=== PATIENT | female | born 1960 | race Caucasian/White ===

== ENCOUNTER → 2016-12-21 | Outpatient (CLI) | payer BC ==
[2016-12-21 07:52] LABS: Basophils # (A) 0.1 k/uL (0-0.2); Basophils % (A) 1 %; CH 28.5; CHCM 32.7; Eosinophils # (A) 0.2 k/uL (0-0.7); Eosinophils % (A) 4 %; HCT 38.4 % (34.0-46.0); HDW 2.46; HGB 12.7 gm/dL (11.4-16.0); Luc # (Auto) 0.16; Luc % (Auto) 4; Lymphocytes # (A) 1.4 k/uL (1.0-4.8); Lymphocytes % (A) 32 %; MCHC 33.1 g/dL (31.0-37.0); MCV 87.4 fL (80.0-100.0); Mean Platelet Volume 8.2; Monocytes # (A) 0.2 k/uL (0-1.0); Monocytes % (A) 6 %; Neutrophils # (A) 2.4 k/uL (1.3-7.7); Neutrophils % (A) 54 %; RDW 12.8 % (11.5-15.5); WBC 4.4 k/uL (3.8-10.6)
[2016-12-21 08:06] LABS: ALT 23 U/L (9-52); AST 17 U/L (14-36); Alkaline Phosphatase 61 U/L (38-126); Anion Gap 8 mmol/L; Blood Urea Nitrogen 16 mg/dL (7-17); Calcium 9.4 mg/dL (8.4-10.2); Carbon Dioxide 30 mmol/L (22-30); Chloride 103 mmol/L (98-107); Cholesterol 145 mg/dL (<200); Glucose 99 mg/dL (74-99); HDL Cholesterol 60 mg/dL (40-60); Non-African American GFR(MDRD) >60 (>60 ml/min/1.73 sqM); Sodium 141 mmol/L (137-145); Total Bilirubin 0.8 mg/dL (0.2-1.3); Total Protein 7.4 g/dL (6.3-8.2); Triglycerides 67 mg/dL (<150)
[2016-12-21 08:48] LABS: Potassium 4.6 mmol/L (3.5-5.1)
== END | disposition home or self-care (01) ==
LOC: LABWHC1 07:20
PROVIDERS: ATTEND Internal Medicine
DX: E78.5 Hyperlipidemia, unspecified (principal); I10 Essential (primary) hypertension; E03.9 Hypothyroidism, unspecified; E55.9 Vitamin D deficiency, unspecified
CPT/HCPCS: 36415; 80053; 80061; 84439; 84443; 85025; 86376; 86800

== ENCOUNTER → 2017-12-26 | Outpatient (CLI) | payer BC ==
[2017-12-26 09:24] LABS: Basophils % (A) 1 %; Eosinophils # (A) 0.1 k/uL (0-0.7); Eosinophils % (A) 3 %; HCT 39.7 % (34.0-46.0); HGB 12.9 gm/dL (11.4-16.0); Lymphocytes # (A) 1.6 k/uL (1.0-4.8); Lymphocytes % (A) 29 %; MCH 28.1 pg (25.0-35.0); MCHC 32.4 g/dL (31.0-37.0); MCV 86.7 fL (80.0-100.0); Mean Platelet Volume 7.1; Monocytes # (A) 0.3 k/uL (0-1.0); Monocytes % (A) 5 %; Neutrophils # (A) 3.3 k/uL (1.3-7.7); Neutrophils % (A) 60 %; Platelet Count 246 k/uL (150-450); RBC 4.58 m/uL (3.80-5.40); WBC 5.5 k/uL (3.8-10.6)
[2017-12-26 11:33] LABS: ALT 26 U/L (9-52); AST 23 U/L (14-36); Albumin 4.5 g/dL (3.5-5.0); Alkaline Phosphatase 58 U/L (38-126); Anion Gap 10 mmol/L; Blood Urea Nitrogen 16 mg/dL (7-17); C Reactive Protein 9.1 mg/L (<10.0); Calcium 9.5 mg/dL (8.4-10.2); Carbon Dioxide 29 mmol/L (22-30); Chloride 103 mmol/L (98-107); Cholesterol 165 mg/dL (<200); Creatine Kinase 142 U/L (30-135); Glucose 101 mg/dL (74-99); HDL Cholesterol 60 mg/dL (40-60); LDL Cholesterol,Calculated 80 mg/dL (0-99); Potassium 4.5 mmol/L (3.5-5.1); Sodium 142 mmol/L (137-145); Total Bilirubin 0.5 mg/dL (0.2-1.3); Total Protein 7.3 g/dL (6.3-8.2); Triglycerides 123 mg/dL (<150)
[2017-12-26 11:44] LABS: T4, Free (Free Thyroxine) 1.29 ng/dL (0.78-2.19)
[2017-12-26 13:19] LABS: Erythrocyte Sedimentation Rate 17 mm/hr (0-20)
[2017-12-26 16:35] LABS: Vitamin D 25 Hydroxy 20.9 ng/mL (30.0-100.0)
[2017-12-26 16:51] LABS: Thyroid Peroxidase Antibodies <28.0 U/mL (0.0-60.0)
== END | disposition home or self-care (01) ==
LOC: LABWHC1 08:37
PROVIDERS: ATTEND Internal Medicine
DX: E78.5 Hyperlipidemia, unspecified (principal); E03.9 Hypothyroidism, unspecified; E55.9 Vitamin D deficiency, unspecified
CPT/HCPCS: 36415; 80053; 80061; 82306; 82550; 84439; 84443; 85025; 85652; 86140; 86376; 86800

== ENCOUNTER → 2018-12-03 | Outpatient (CLI) | payer BC ==
[2018-12-03 18:21] LABS: T4, Free (Free Thyroxine) 1.2 ng/dL (0.80-1.80)
== END ==
LOC: LABWHC1 08:51
PROVIDERS: ATTEND Internal Medicine
DX: E55.9 Vitamin D deficiency, unspecified (principal); E03.9 Hypothyroidism, unspecified
CPT/HCPCS: 36415; 82306; 84439; 84443; 85652

== ENCOUNTER → 2019-01-17 | Outpatient (CLI) | payer BC ==
--- NOTE | 2019-01-17 09:31 | BD ---
EXAMINATION TYPE: Axial Bone Density DATE OF EXAM: 01/17/2019 COMPARISON: Prior DEXA bone scan 2013 CLINICAL HISTORY: Height: 5 FT 6 1/2 IN Weight: 187 FRAX RISK QUESTIONS: Secondary Osteoporosis: 3. Menopause before 45: YES RISK FACTORS HISTORY OF: Active: YES Postmenopausal woman: AGE [age] Take estrogen and/or progesterone medications: YES How lon WEEKS Lost more than 2 inches in height since high school: YES MEDICATIONS: Thyroid Medications: YES Which medication: LEVOXYL How Lon YEARS Additional Medications: LEVOXYL,PELLET THERAPY, LIPITOR, METOPROLOL, LISINOPRIL, ASPIRIN, D3, Additional History: EXAM MEASUREMENTS: Bone mineral densitometry was performed using the [employer]. Bone mineral density as measured about the Lumbar spine is: ----- L1-L4(G/cm2): 1.185 T Score Values are as follows: ----- L2: -1.5 ----- L3: 0.9 ----- L4: 1.2 ----- L1-L4: 0.0 Bone mineral density has: DECREASED -1.8% since study of: 2013 Bone mineral density about the R hip (g/cm2): 1.025 Bone mineral density about the L hip (g/cm2): 0.969 T Score values are as follows: -----R Neck: -0.1 -----L Neck: -0.5 -----R Total: -0.1 -----L Total: 0.2 Bone mineral density has: INCREASED 0.8 % since study of: 2013 IMPRESSION: Normal (Values between +1 and -1 indicate normal bone mass). Consider repeating this study in 5 year s or sooner if there is some new clinical indication. NOTE: T-SCORE=SD OF THE YOUNG ADULT MEAN.
--- NOTE | 2019-01-17 11:57 | MM ---
Reason for exam: screening (asymptomatic). Last mammogram was performed 1 year and 4 months ago. History: Patient is postmenopausal, has history of other cancer at age 42, and is nulliparous. Physical Findings: A clinical breast exam by your physician is recommended on an annual basis and results should be correlated with mammographic findings. MG 3D Screening Mammo W/Cad Bilateral CC and MLO view(s) were taken. Prior study comparison: September 28, 2017, bilateral MG screening mammo w CAD. April 28, 2016, bilateral MG screening mammo w CAD. The breast tissue is heterogeneously dense. This may lower the sensitivity of mammography. There is chronic nodularity in the right breast. There is no discrete abnormality. ASSESSMENT: Negative, BI-RAD 1 RECOMMENDATION: Routine screening mammogram of both breasts in 1 year.
== END ==
LOC: RADMAMWWP 07:19
PROVIDERS: ATTEND Obstetrics & Gynecology
DX: Z12.31 Encounter for screening mammogram for malignant neoplasm of breast (principal); N95.1 Menopausal and female climacteric states
CPT/HCPCS: 77063; 77067; 77080

== ENCOUNTER → 2019-04-03 | Outpatient (CLI) | payer BC ==
[2019-04-03 08:37] LABS: Basophils % (A) 1 %; Eosinophils # (A) 0.2 k/uL (0-0.7); Eosinophils % (A) 3 %; HCT 39.7 % (34.0-46.0); HGB 12.4 gm/dL (11.4-16.0); Lymphocytes # (A) 1.7 k/uL (1.0-4.8); Lymphocytes % (A) 31 %; MCH 27.6 pg (25.0-35.0); MCHC 31.2 g/dL (31.0-37.0); MCV 88.6 fL (80.0-100.0); Mean Platelet Volume 7.3; Monocytes # (A) 0.3 k/uL (0-1.0); Monocytes % (A) 6 %; Neutrophils # (A) 3.2 k/uL (1.3-7.7); Neutrophils % (A) 58 %; Platelet Count 241 k/uL (150-450); RBC 4.48 m/uL (3.80-5.40); RDW 14.6 % (11.5-15.5); WBC 5.6 k/uL (3.8-10.6)
[2019-04-03 12:18] LABS: Erythrocyte Sedimentation Rate 13 mm/hr (0-20)
[2019-04-03 17:11] LABS: T4, Free (Free Thyroxine) 1.2 ng/dL (0.80-1.80)
[2019-04-03 17:51] LABS: African American GFR (CKD) 112.3 (60.0-200.0); Albumin 4.3 g/dL (3.80-4.90); Albumin/Globulin Ratio 2.05 (1.60-3.17); Anion Gap 6.4 mmol/L (4.00-12.00); BUN/Creat Ratio 18.57 Ratio (12.00-20.00); C Reactive Protein 0.4 mg/dL (0.0-0.8); Carbon Dioxide 26.6 mmol/L (21.6-31.8); Globulin 2.1 g/dL (1.6-3.3); LDL Cholesterol,Calculated 84.4 mg/dL (0.0-131.0); Potassium 4.4 mmol/L (3.5-5.5); Total Bilirubin 0.4 mg/dL (0.3-1.2); Total Protein 6.4 g/dL (6.2-8.2); VLDL Calculation 11.6 mg/dL (5.00-40.00)
== END | disposition home or self-care (01) ==
LOC: LABWHC1 07:20
PROVIDERS: ATTEND Internal Medicine
DX: Z00.00 Encounter for general adult medical examination without abnormal findings (principal); E87.8 Other disorders of electrolyte and fluid balance, not elsewhere classified; E78.5 Hyperlipidemia, unspecified; E03.9 Hypothyroidism, unspecified; E55.9 Vitamin D deficiency, unspecified
CPT/HCPCS: 36415; 80053; 80061; 82306; 82550; 84439; 84443; 85025; 85652; 86140

== ENCOUNTER → 2019-11-20 | Outpatient (CLI) | payer BC ==
--- NOTE | 2019-11-20 09:07 | MM ---
Reason for exam: clinical finding. Last mammogram was performed 10 months ago. History: Patient is postmenopausal, has history of other cancer at age 42, and is nulliparous. Taking estrogen beginning at age 58. Taking progesterone beginning at age 58. Taking other hormone beginning at age 58. Physical Findings: Nurse did not find any significant physical abnormalities on exam. MG 3D Diag Mammo W/Cad MARCELINO Bilateral CC and MLO view(s) were taken. Prior study comparison: January 17, 2019, bilateral MG 3d screening mammo w/cad. September 28, 2017, bilateral MG screening mammo w CAD. There are stable right upper outer quadrant piddle and posterior depth masses and right lower inner quadrant anterior depth mass back to 2014. No suspicious abnormality. No significant new findings when compared with previous films. These results were verbally communicated with the patient and result sheet given to the patient on 11/20/19. ASSESSMENT: Benign, BI-RAD 2 RECOMMENDATION: Routine screening mammogram of both breasts in 1 year. Manage patient on a clinical basis.
== END | disposition home or self-care (01) ==
LOC: RADMAMWWP 07:28
PROVIDERS: ATTEND Obstetrics & Gynecology
DX: N64.52 Nipple discharge (principal)
CPT/HCPCS: 77062; 77066

== ENCOUNTER → 2020-11-24 | Outpatient (CLI) | payer BC ==
[2020-11-24 13:21] LABS: ALT 17 U/L (8-44); AST 18 U/L (13-35); African American GFR (CKD) 94.2 (60.0-200.0); Albumin/Globulin Ratio 2.94 (1.60-3.17); Alkaline Phosphatase 56 U/L (41-126); C Reactive Protein <0.4 mg/dL (0.0-0.8); Calcium 8.9 mg/dL (8.7-10.3); Carbon Dioxide 28.5 mmol/L (21.6-31.8); Chloride 106 mmol/L (96-109); Chol/HDL Ratio 2.57; Cholesterol 149 mg/dL (0-200); Creatine Kinase 141 U/L (26-186); Globulin 1.7 g/dL (1.6-3.3); Glucose 101 mg/dL (70-110); LDL Cholesterol,Calculated 77.6 mg/dL (0.0-131.0); Non-African American GFR(CKD) 81.3 (60.0-200.0); Potassium 4.5 mmol/L (3.5-5.5); Sodium 140 mmol/L (135-145); Total Bilirubin 0.4 mg/dL (0.3-1.2); Total Protein 6.7 g/dL (6.2-8.2)
== END | disposition home or self-care (01) ==
LOC: LABWHC1 07:49
PROVIDERS: ATTEND Internal Medicine
DX: Z00.00 Encounter for general adult medical examination without abnormal findings (principal); E78.5 Hyperlipidemia, unspecified; I10 Essential (primary) hypertension; E03.9 Hypothyroidism, unspecified; R25.2 Cramp and spasm
CPT/HCPCS: 36415; 80053; 80061; 82550; 85652; 86140

== ENCOUNTER → 2021-03-29 | Outpatient (CLI) | payer BC ==
--- NOTE | 2021-03-31 15:10 | MM ---
Reason for exam: screening (asymptomatic). Last mammogram was performed 1 year and 4 months ago. History: Patient is postmenopausal, has history of other cancer at age 42, and is nulliparous. Taking estrogen beginning at age 58. Taking progesterone beginning at age 58. Taking other hormone beginning at age 58. Physical Findings: A clinical breast exam by your physician is recommended on an annual basis and results should be correlated with mammographic findings. MG 3D Screening Mammo W/Cad Bilateral CC and MLO view(s) were taken. Prior study comparison: November 20, 2019, bilateral MG 3d diag mammo w/cad MARCELINO. January 17, 2019, bilateral MG 3d screening mammo w/cad. There are scattered fibroglandular densities. Finding: There is a 7 mm equal density (isodense), circumscribed oval mass in the outer quadrant of the right breast 7cm from the nipple on CC view. New finding since November 20, 2019 and January 17, 2019. ASSESSMENT: Incomplete: need additional imaging evaluation, BI-RAD 0 RECOMMENDATION: Ultrasound of the right breast. [facility] will attempt to contact patient to return for ultrasound.
== END | disposition home or self-care (01) ==
LOC: RADMAMWWP 07:22
PROVIDERS: ATTEND Obstetrics & Gynecology
DX: Z12.31 Encounter for screening mammogram for malignant neoplasm of breast (principal); Z78.0 Asymptomatic menopausal state
CPT/HCPCS: 77063; 77067

== ENCOUNTER → 2021-04-05 | Outpatient (CLI) | payer BC ==
--- NOTE | 2021-04-05 09:38 | USB ---
EXAMINATION TYPE: US breast workup limited RT DATE OF EXAM: 04/05/2021 COMPARISON: 03/29/2021 CLINICAL HISTORY: R92.8 abnormal mammogram. Findings: Targeted right breast ultrasound was performed in the lateral half of the right breast. In the right breast at 10:00, there is a 0.5 x 0.6 x 0.3 cm ovoid anechoic lesion which corresponds well in size, location and morphology to the asymmetry in the right upper outer breast at middle depth seen on rece nt mammogram and is benign. IMPRESSION: No sonographic evidence for malignancy. BI-RADS 2, benign. Recommendation: Bilateral screening mammogram is recommended in one year.
== END | disposition home or self-care (01) ==
LOC: RADUSWWP 08:47
PROVIDERS: ATTEND Obstetrics & Gynecology
DX: N64.89 Other specified disorders of breast (principal)

== ENCOUNTER → 2022-03-10 | Outpatient (CLI) | payer BC ==
[2022-03-10 10:47] LABS: Basophils # (A) 0.07 X 10*3/uL (0.00-0.10); Basophils % (A) 1.2 %; Eosinophils # (A) 0.17 X 10*3/uL (0.04-0.35); Eosinophils % (A) 2.9 %; HCT 39.2 % (37.2-46.3); HGB 12.5 g/dL (12.0-15.0); Immature Grans, Automated 0.2 %; Lymphocytes # (A) 1.73 X 10*3/uL (0.90-5.00); Lymphocytes % (A) 29.9 %; MCH 27.8 pg (27.0-32.0); MCHC 31.9 g/dL (32.0-37.0); MCV 87.1 fL (80.0-97.0); Mean Platelet Volume 10.3 fL (9.5-12.2); Monocytes # (A) 0.46 X 10*3/uL (0.20-1.00); NRBC Per 100 WBC 0 /100 WBCS (0.0-0.0); Neutrophils # (A) 3.34 X 10*3/uL (1.80-7.70); Neutrophils % (A) 57.8 %; Platelet Count 223 X 10*3/uL (140-440); RDW 13.2 % (11.5-14.5); WBC 5.78 X 10*3/uL (4.50-10.00)
[2022-03-10 14:44] LABS: Erythrocyte Sedimentation Rate 20 mm/Hr (0-30)
[2022-03-10 15:03] LABS: ALT 16 U/L (8-44); AST 19 U/L (13-35); African American GFR (CKD) 111.5 (60.0-200.0); Albumin 4.5 g/dL (3.8-4.9); Albumin/Globulin Ratio 1.78 (1.60-3.17); Alkaline Phosphatase 69 U/L (41-126); Blood Urea Nitrogen 13.4 mg/dL (9.0-27.0); Calcium 9.6 mg/dL (8.7-10.3); Carbon Dioxide 23.7 mmol/L (20.0-27.5); Chloride 104 mmol/L (96-109); Creatine Kinase 79 U/L (26-186); Globulin 2.5 g/dL (1.6-3.3); Glucose 106 mg/dL (70-110); Magnesium 2.2 mg/dL (1.5-2.4); Non-African American GFR(CKD) 96.2 (60.0-200.0); Phosphorus 3.9 mg/dL (2.4-5.1); Potassium 4.6 mmol/L (3.5-5.5); Sodium 138 mmol/L (135-145); Total Protein 7.1 g/dL (6.2-8.2)
[2022-03-10 15:44] LABS: Thyroid Peroxidase Antibodies <9.0 U/mL (0.0-33.0)
[2022-03-10 16:03] LABS: Chol/HDL Ratio 2.99 Ratio; LDL Cholesterol,Calculated 78.1 mg/dL (0.0-131.0)
== END | disposition home or self-care (01) ==
LOC: LABWHC1 07:15
PROVIDERS: ATTEND Internal Medicine
DX: Z00.00 Encounter for general adult medical examination without abnormal findings (principal); I10 Essential (primary) hypertension; E87.8 Other disorders of electrolyte and fluid balance, not elsewhere classified; E78.5 Hyperlipidemia, unspecified; E03.9 Hypothyroidism, unspecified; E55.9 Vitamin D deficiency, unspecified; D64.9 Anemia, unspecified
CPT/HCPCS: 36415; 80053; 80061; 82306; 82550; 83735; 84100; 84432; 84439; 84443; 85025; 85652; 86140; 86376

== ENCOUNTER → 2022-04-13 | Outpatient (CLI) | payer BC ==
--- NOTE | 2022-04-14 08:02 | MM ---
Reason for Exam: Screening (asymptomatic). Last screening mammogram was performed 12 month(s) ago. Patient History: Menarche at age 14. Patient has no children. Postmenopausal. Other cancer, age 42. Currently using Estrogen, starting at age 58. Currently using Progesterone, starting at age 58. Risk Values: Danay 5 year model risk: 1.5%. NCI Lifetime model risk: 8.3%. Prior Study Comparison: 01/17/2019 Bilateral Screening Mammogram, [facility]. 11/20/2019 Bilateral Diagnostic Mammogram, [facility]. 03/29/2021 Bilateral Screening Mammogram, [facility]. Tissue Density: The breast tissue is heterogeneously dense. This may lower the sensitivity of mammography. Findings: Analyzed By CAD. There is no suspicious group of microcalcifications or new suspicious mass in either breast. Overall Assessment: Negative, BI-RAD 1 Management: Screening Mammogram of both breasts in 1 year. A clinical breast exam by your physician is recommended on an annual basis and results should be correlated with mammographic findings. Electronically signed and approved by: Prem Meehan M.D. Radiologis
== END | disposition home or self-care (01) ==
LOC: RADMAMWWP 07:44
PROVIDERS: ATTEND Internal Medicine
DX: Z12.31 Encounter for screening mammogram for malignant neoplasm of breast (principal); Z78.0 Asymptomatic menopausal state
CPT/HCPCS: 77063; 77067

== ENCOUNTER → 2023-08-11 | Outpatient (CLI) | payer BC ==
--- NOTE | 2023-08-11 08:42 | US ---
EXAMINATION TYPE: US abdomen limited DATE OF EXAM: 08/11/2023 COMPARISON: NONE CLINICAL INDICATION: Female, 63 years old with history of R10.84 ABD PAIN; RUQ pain TECHNIQUE: Multiple sonographic images of the right upper quadrant are obtained. FINDINGS: EXAM MEASUREMENTS: Liver Length: 16.8 cm Gallbladder Wall: 0.3 cm CBD: 0.5 cm Right Kidney: 10.9 x 5.1 x 5.7 cm [employer] NOTES:Technical limitations due to large amount of overlying bowel gas Pancreas: Tail obscured by overlying bowel gas. Visualized portions appear slightly heterogeneous Liver: attenuating, heterogeneous Gallbladder: no evidence of stones as visualized Evidence for sonographic Montesinos's sign: no CBD: wnl Right Kidney: dilated renal pelvis Liver is diffusely heterogenous with increased attenuation. No focal lesion identified. No gallstones , wall thickening, joint fluid. Negative sonographic Montesinos's sign. Common bile duct is within normal limits. Right kidney demonstrates prominent renal pelvis without overt hydronephrosis. No nephrolith iasis or solid mass identified. Visualized portions of the PEG is unremarkable. IMPRESSION: Limited examination due to overlying bowel gas. 1. No acute process. 2. Prominent right renal pelvis without over hydronephrosis. 3. Mild hepatic steatosis.
--- NOTE | 2023-08-11 10:32 | MM ---
Reason for Exam: Screening (asymptomatic). Last mammogram was performed 1 year(s) and 4 month(s) ago. Patient History: Menarche at age 14. Patient has no children. Postmenopausal. Other cancer, age 42. Estrogen, from age 58 until age 62. Progesterone, from age 58 until age 62. Risk Values: Danay 5 year model risk: 1.6%. NCI Lifetime model risk: 7.9%. Prior Study Comparison: 11/20/2019 Bilateral Diagnostic Mammogram, [facility]. 03/29/2021 Bilateral Screening Mammogram, [facility]. 04/13/2022 Bilateral MG 3D screening mammo w/cad, [facility]. Tissue Density: The breast tissue is heterogeneously dense. This may lower the sensitivity of mammography. Findings: Analyzed By CAD. There is no suspicious group of microcalcifications or new suspicious mass in either breast. Chronic nodularity within the right breast. Benign calcification within the right breast. Overall Assessment: Benign, BI-RAD 2 Management: Screening Mammogram of both breasts in 1 year. A clinical breast exam by your physician is recommended on an annual basis and results should be correlated with mammographic findings. Note on Danay scores and lifetime risk: 1. A Danay score greater than 3% is considered moderate risk. If this is the case, consider specialist referral to assess eligibility for a risk reducing agent. If overall lifetime risk for the development of breast cancer is 20% or higher, the patient may qualify for future screening with alternating mammogram and breast MRI. Electronically signed and approved by: London Aguilar D.O.
== END | disposition home or self-care (01) ==
LOC: RADMAMWWP 07:49
PROVIDERS: ATTEND Internal Medicine
DX: Z12.31 Encounter for screening mammogram for malignant neoplasm of breast (principal); K76.0 Fatty (change of) liver, not elsewhere classified; R10.11 Right upper quadrant pain; Z78.0 Asymptomatic menopausal state
CPT/HCPCS: 76705; 77063; 77067

== ENCOUNTER → 2024-08-29 | Outpatient (CLI) | payer BC ==
--- NOTE | 2024-08-31 22:42 | MM ---
Reason for Exam: Screening (asymptomatic). Last mammogram was performed 1 year(s) and 1 month(s) ago. Patient History: Menarche at age 14. Patient has no children. Postmenopausal. Other cancer, age 42. Estrogen, from age 58 until age 62. Progesterone, from age 58 until age 62. Risk Values: Danay 5 year model risk: 1.7%. NCI Lifetime model risk: 7.7%. Prior Study Comparison: 03/29/2021 Bilateral Screening Mammogram, [facility]. 04/13/2022 Bilateral MG 3D screening mammo w/cad, [facility]. 08/11/2023 Bilateral MG 3D screening mammo w/cad, [facility]. Tissue Density: The breasts are heterogeneously dense, which may obscure small masses. Findings: Analyzed By CAD. The pattern is symmetrical. No significant interval change is evident. Chronic nodules within the medial right breast No suspicious groups of microcalcifications, spiculated or lobular masses, architectural distortion or other secondary signs of malignancy are mammographically apparent. Overall Assessment: Benign, BI-RAD 2 Management: Screening Mammogram of both breasts in 1 year. A negative mammogram report should not preclude additional follow up of suspicious palpable abnormalities. Patient should continue monthly self breast exam. A clinical breast exam by your physician is recommended on an annual basis and results should be correlated with mammographic findings. Note on Danay scores and lifetime risk: 1. A Danay score greater than 3% is considered moderate risk. If this is the case, consider specialist referral to assess eligibility for a risk reducing agent. 2. If overall lifetime risk for the development of breast cancer is 20% or higher, the patient may qualify for future screening with alternating mammogram and breast MRI. [facility], , 08/31/2024 10:39 PM. Electronically signed and approved by: Akash Leblanc D.O. Radiologis
== END | disposition home or self-care (01) ==
LOC: RADMAMWWP 08:12
PROVIDERS: ATTEND Internal Medicine
DX: Z12.31 Encounter for screening mammogram for malignant neoplasm of breast (principal); R92.333 Mammographic heterogeneous density, bilateral breasts; Z78.0 Asymptomatic menopausal state
CPT/HCPCS: 77063; 77067

== ENCOUNTER → 2024-09-19 | Outpatient (CLI) | payer BC ==
--- NOTE | 2024-09-19 10:48 | XR ---
EXAMINATION TYPE: XR shoulder complete 3 views LT DATE OF EXAM: 09/19/2024 8:55 AM COMPARISON: None CLINICAL INDICATION: Female, 64 years old with history of ARTHRITIS, PAIN, Z00.00, , FINDINGS: Moderate degenerative changes of joint with joint space narrowing, subchondral sclerosis, and margina l spurring. There is a large oval calcification measuring 1.6 cm projecting over the greater tuberosity, below th e acromion. The glenohumeral joint is intact. No acute fracture, subluxation, dislocation. Visualized left hemithorax is clear. IMPRESSION: 1. A 1.6 cm calcific focus in the subacromial space. Correlate for calcific tendinitis/bursitis of th e rotator cuff. If significant pain, the patient can be referred to orthopedics. 2. Moderate AC joint OA. 3. Otherwise, no acute osseous abnormality seen. [facility], Workstation: 3, 09/19/2024 10:45 AM
[2024-09-19 16:12] LABS: ALT 22 U/L (8-44); AST 19 U/L (13-35); Albumin 4.5 g/dL (3.8-4.9); Albumin/Globulin Ratio 2.14 Ratio (1.60-3.17); Alkaline Phosphatase 90 U/L (41-126); Blood Urea Nitrogen 14.4 mg/dL (9.0-27.0); Calcium 9.2 mg/dL (8.7-10.3); Carbon Dioxide 25.9 mmol/L (21.6-31.8); Chloride 104 mmol/L (96-109); Chol/HDL Ratio 3.28 Ratio; Globulin 2.1 g/dL (1.6-3.3); Glucose 105 mg/dL (70-110); LDL Cholesterol,Calculated 107.6 mg/dL (0.0-131.0); Potassium 4.6 mmol/L (3.5-5.5); Sodium 141 mmol/L (135-145); T4, Free (Free Thyroxine) 1.26 ng/dL (0.80-1.80); Total Bilirubin 0.5 mg/dL (0.3-1.2); Total Protein 6.6 g/dL (6.2-8.2); Uric Acid 4.6 mg/dL (2.9-7.7)
[2024-09-19 21:06] LABS: Thyroid Peroxidase Antibodies 11.7 U/mL (0.0-33.0)
== END | disposition home or self-care (01) ==
LOC: LABWHC1 07:58
PROVIDERS: ATTEND Internal Medicine
DX: I10 Essential (primary) hypertension (principal); M75.22 Bicipital tendinitis, left shoulder; E78.5 Hyperlipidemia, unspecified; E03.9 Hypothyroidism, unspecified
CPT/HCPCS: 36415; 80053; 80061; 84432; 84439; 84443; 84550; 85652; 86376

== ENCOUNTER → 2025-05-16 | Outpatient (CLI) | payer BC ==
--- NOTE | 2025-05-19 18:04 | MR ---
MR shoulder LT wo con DATE OF EXAM: 05/16/2025 11:04 AM COMPARISON: Left shoulder radiographs 718 . CLINICAL INDICATION: Female, 64 years old with history of M25.512 L shoulder pain; PHH, Left shoulder pain, decreased ROM. TECHNIQUE: Noncontrast multiplanar, multiecho imaging of the left shoulder was performed, including T 1-weighted and fluid sensitive sequences. FINDINGS: Rotator cuff: Supraspinatus and infraspinatus: Full-thickness partial width tear of the supraspinatus, specifically posterior and a portion of the anterior fibers measuring 6 mm in AP dimension from the insertion. Mi nimal retraction to the level of the critical zone. Some anterior supraspinatus fibers remain intact. Extension of the tear into the bursal surface of the superior infraspinatus fibers. Background tendi nosis. Subscapularis: Intact. Teres minor: Intact. Cuff muscles: Symmetric bulk and signal intensity. Acromioclavicular joint: Severe arthrosis with moderate capsular hypertrophy. SA-SD bursa: Trace bursal fluid. Long head biceps tendon: Intact, with normal course. Intra-articular tendinosis. Rotator Interval: Edematous with partial effacement of the fat. Axillary pouch: Preserved. Labrum: Signal attenuation and blunting of the posterior superior labrum. More discrete fluid separat ion of the chondral labral junction of the posterior labrum Cartilage: Full-thickness fissure of the central glenoid. Additional surface irregularity/wear of the posterior glenoid. Marrow: Prominent subcortical cyst at the footplate/greater tuberosity, the superolateral aspect/roof of which is fractured, may yet be attached to retracted supraspinatus fibers. Presumably related karlene ma-like marrow signal of the greater tuberosity. No suspicious osseous lesion or marrow replacing pro cess. Other soft tissues: No joint effusion. No axillary adenopathy. IMPRESSION: 1. Full-thickness partial width tear of supraspinatus with additional partial-thickness tearing of i nfraspinatus as described. 2. Prominent geode of the greater tuberosity, the roof of which is comprised of the footplate/insert ion of the rotator cuff and is fractured. [facility], Workstation: [id number], 05/19/2025 6:01 PM
== END | disposition home or self-care (01) ==
LOC: RADMRIMAIN 09:54
PROVIDERS: ATTEND Orthopaedic Surgery
DX: S46.012A Strain of muscle(s) and tendon(s) of the rotator cuff of left shoulder, initial encounter (principal)